=== PATIENT | female | born 1960 | race American Indian/Alaskan Native ===

== ENCOUNTER 2021-03-13 02:40 | Emergency (ER) | payer MEDICAID ==
[2021-03-13] MEDS ORDERED: ONDANSETRON 4 MG ODT TAB PO ONE (05:12)
[2021-03-13] MEDS ORDERED: ALPRAZolam 0.5 MG TAB PO ONE (05:12)
[2021-03-13] MEDS ORDERED: ACETAMINOPHEN 325 MG TAB PO ONE (05:12)
--- NOTE | 2021-03-13 05:14 | Event Note ---
Date: 03/13/21 The patient was evaluated in the emergency department for symptoms described in the history of present illness. He/she was evaluated in the context of the global COVID-19 pandemic, which necessitated consideration that the patient might be at risk for infection with the virus that causes COVID-19. Institutional protocols and algorithms that pertain to the evaluation of patients at risk for COVID-19 are in a state of rapid change based on information released by regulatory bodies including the CDC and federal and state organizations. These policies and algorithms were followed during the patient's care in the emergency department. Please note that these policies, procedures and recommendations changed on a rapid basis. EMS documentation not available at time of chart dictation Medical screening note: 60-year-old female, with a reported history of breast cancer and left-sided mastectomy, presenting to the ER with complaints of abdominal cramping, nausea and vomiting. She reports that she believes she consumed some bad black shepard burgers, and her symptoms started. She also reports that she is feeling very anxious, and subsequently has left-sided abdominal cramping. She has chest tightness associated with nausea/vomiting. She denies urinary symptoms. On examination, patient is awake, anxious, but redirectable. She does have mild abdominal tenderness which she attributes secondary to nausea and vomiting. Reports she can only have IVs placed in her right upper extremity, secondary to history of left-sided mastectomy. She denies the possibility of carbon monoxide exposure. Obtain appropriate laboratory studies, EKG, treat symptoms with oral medications. Detailed history and physical to be performed by oncoming ER provider who will determine the patient's ultimate disposition. Vital Signs 03/13/21 04:47 Temperature 98.7 F Pulse Rate 82 Respiratory 16 Rate Blood Pressure 122/71 [Left] O2 Sat by Pulse 98 Oximetry
[2021-03-13] MEDS ORDERED: ONDANSETRON 4 MG/2 ML INJ IV ONE (05:50)
[2021-03-13] MEDS ORDERED: MORPHINE 4 MG/1 ML INJ IV ONE (05:51)
[2021-03-13 06:02] LABS: Bilirubin,Urine NEG (Negative); Blood,Urine NEG (Negative); Color,Urine Yellow (Yellow); Mucus,Urine FEW /HPF; Urobilinogen,Urine < 2.0 mg/dL (<2.0)
[2021-03-13 06:17] LABS: Basophils % (Auto) 0.3 % (0.0-1.8); Hematocrit 40.6 % (30.3-42.9); Hemoglobin 13.3 gm/dl (10.1-14.3); Lymphocytes # (Auto) 0.8 K/mm3 (1.2-5.4); Mean Corpuscular HGB Conc 33 % (30-34); Mean Corpuscular Volume 90 fl (79-97); Monocytes # (Auto) 0.3 K/mm3 (0.0-0.8); Monocytes % (Auto) 3.7 % (0.0-7.3); Platelet Count 307 K/mm3 (140-440); Red Blood Count 4.49 M/mm3 (3.65-5.03); Red Cell Distribution Width 14.1 % (13.2-15.2)
[2021-03-13 06:23] LABS: Alanine Aminotransferase 18 units/L (7-56); Albumin 4.9 g/dL (3.9-5); Blood Urea Nitrogen 10 mg/dL (7-17); Calcium 9.8 mg/dL (8.4-10.2); Hemolysis Index 137
[2021-03-13 06:35] LABS: Protein,Urine <15 mg/dL mg/dL (Negative)
--- NOTE | 2021-03-13 06:45 | Emergency Department Report ---
ED N/V/D HPI - General Chief complaint: Nausea/Vomiting/Diarrhea Stated complaint: ABDOMINAL PAIN/NAUSEA/VOMITING Time Seen by Provider: 03/13/21 05:59 Source: patient Mode of arrival: Ambulatory Limitations: No Limitations - History of Present Illness Initial comments: Patient presents with a 1 day history of nausea, vomiting, and abdominal pain. She and her daughter both ate some black shepard burgers. Patient thinks that this may have upset her stomach. She also states that this could have just "triggered her symptoms." She has a long history of gastric issues. She does not know what is being treated. She states that she had been told that she has polyps which were removed. She was told that she had an ulcer which was treated. She regardless still has a chronic and ongoing abdominal issues. Today, she is concerned because of the black shepard burgers and the fact that her daughter became ill with similar symptoms. Patient has no hematemesis or coffee-ground emesis. Has no melenic stool. The pain does not radiate or migrate. It is localized to the left upper quadrant. Patient was seen by another provider initially and labs were ordered. - Related Data Previous Rx's Medication Instructions Recorded Last Taken Type Hyoscyamine Subl [Levsin Sl 0.125 0.125 mg SL Q6HR PRN #20 tab 03/13/21 Unknown Rx TAB] Ondansetron [Zofran ODT TAB] 8 mg PO Q8HR PRN #20 tab.rapdis 03/13/21 Unknown Rx Allergies Allergy/AdvReac Type Severity Reaction Status Date / Time latex Allergy Hives Verified 03/13/21 04:47 metoclopramide [From Reglan] Allergy Vomiting Verified 03/13/21 04:47 Penicillins Allergy Hives Verified 03/13/21 04:47 ED Review of Systems ROS: Stated complaint: ABDOMINAL PAIN/NAUSEA/VOMITING Other details as noted in HPI Comment: All other systems reviewed and negative Constitutional: denies: fever Eyes: denies: eye pain ENT: denies: throat pain Respiratory: denies: cough Cardiovascular: denies: chest pain Endocrine: denies: unexplained weight loss Gastrointestinal: as per HPI Genitourinary: denies: dysuria Musculoskeletal: denies: back pain Skin: denies: rash Neurological: denies: headache Hematological/Lymphatic: denies: easy bruising ED Past Medical Hx - Past Medical History Previous Medical History?: Yes Hx Hypertension: Yes Hx Congestive Heart Failure: Yes Hx of Cancer: Yes (breast) Hx Psychiatric Treatment: Yes (anxiety,depression) - Surgical History Hx Breast Surgery: Yes - Family History Family history: other (Anxiety) - Medications Home Medications: Home Medications Medication Instructions Recorded Confirmed Last Taken Type Hyoscyamine Subl [Levsin Sl 0.125 0.125 mg SL Q6HR PRN #20 tab 03/13/21 Unknown Rx TAB] Ondansetron [Zofran ODT TAB] 8 mg PO Q8HR PRN #20 tab.rapdis 03/13/21 Unknown Rx ED Physical Exam - General Limitations: No Limitations, Other (Pulse ox noted and normal) General appearance: alert, in no apparent distress - Head Head exam: Present: atraumatic, normocephalic - Eye Eye exam: Present: normal appearance, EOMI. Absent: scleral icterus - ENT ENT exam: Present: normal orophraynx, normal external ear exam - Neck Neck exam: Present: normal inspection. Absent: meningismus - Respiratory Respiratory exam: Present: normal lung sounds bilaterally. Absent: respiratory distress - Cardiovascular Cardiovascular Exam: Present: regular rate, normal rhythm - GI/Abdominal GI/Abdominal exam: Present: soft, tenderness (Mild left upper quadrant). Absent: distended, guarding, rebound - Extremities Exam Extremities exam: Present: normal capillary refill - Back Exam Back exam: Absent: CVA tenderness (R), CVA tenderness (L) - Neurological Exam Neurological exam: Present: alert, oriented X3, CN II-XII intact. Absent: motor sensory deficit - Psychiatric Psychiatric exam: Present: normal affect, normal mood - Skin Skin exam: Present: warm, dry ED Course Vital Signs 03/13/21 03/13/21 04:47 07:01 Temperature 98.7 F Pulse Rate 82 85 Respiratory 16 17 Rate Blood Pressure 122/71 119/71 [Left] O2 Sat by Pulse 98 97 Oximetry - Reevaluation(s) Reevaluation #2: 03/13/21 06:43 Labs are pending. Old records reviewed. Reevaluation #3: 03/13/21 07:07 Labs are noted. Patient was discharged. ED Medical Decision Making - Lab Data Result diagrams: 03/13/21 05:38 03/13/21 05:38 - Medical Decision Making Patient present with abdominal pain after eating black shepard burgers. She had GI upset as well. There is no evidence of acute hepatitis or pancreatitis. She has no distention or tympany to suggest bowel obstruction. There is no lower abdominal tenderness suggestive of appendicitis. She certainly does not have focal right upper quadrant tenderness to suggest biliary disease. At 60, I do not believe this would represent . She was treated symptomatically and referred for outpatient evaluation and follow-up. Critical Care Time: No Critical care attestation.: If time is entered above; I have spent that time in minutes in the direct care of this critically ill patient, excluding procedure time. ED Disposition Clinical Impression: Acute epigastric pain Nausea & vomiting Qualifiers: Vomiting type: unspecified Qualified Code(s): R11.2 - Nausea with vomiting, unspecified Disposition: 01 HOME / SELF CARE / HOMELESS Is pt being admited?: No Condition: Stable Instructions: Abdominal Pain, Adult, [id number], Nausea and Vomiting, Adult Additional Instructions: Have a bland diet. Drink plenty water. Return for problems. Continue home medication. Follow-up with your regular doctor and your GI doctor for recheck. Prescriptions: Hyoscyamine Subl [Levsin Sl 0.125 TAB] 0.125 mg SL Q6HR PRN #20 tab PRN Reason: abd pain Ondansetron [Zofran ODT TAB] 8 mg PO Q8HR PRN #20 tab.rapdis PRN Reason: Nausea Referrals: PRIMARY CARE, [Primary Care Provider] - 3-5 Days
[2021-03-13 06:48] LABS: BUN/Creatinine Ratio 20
[2021-03-13 07:03] VITALS: BP 119/71
[2021-03-13] MEDS ORDERED: HALOPERIDOL LACTATE 5 MG/1 ML INJ IM ONE (07:46)
== END 2021-03-13 07:56 | disposition home or self-care (01) ==
LOC: ED 02:40
DX: R10.13 Epigastric pain (principal); R11.2 Nausea with vomiting, unspecified; I10 Essential (primary) hypertension; Z86.79 Personal history of other diseases of the circulatory system; Z91.040 Latex allergy status; Z88.0 Allergy status to penicillin; Z88.8 Allergy status to other drugs, medicaments and biological substances
CPT/HCPCS: 36415; 80053; 81001; 83690; 84484; 85025; 96374; 96375; 99283; J2270; J2405; J3490; Q0162

== ENCOUNTER 2021-06-01 01:16 | Emergency (ER) | payer MEDICAID ==
[2021-06-01] MEDS ORDERED: ONDANSETRON 4 MG/2 ML INJ IV ONE (01:31)
[2021-06-01] MEDS ORDERED: SODIUM CHLORIDE 0.9% 1000 ML 1,000 ML IV ONE (01:31)
[2021-06-01] MEDS ORDERED: FAMOTIDINE 20 MG/2 ML INJ IV ONE (01:31)
--- NOTE | 2021-06-01 01:37 | Emergency Department Report ---
ED N/V/D HPI - General Chief complaint: Abdominal Pain Stated complaint: AB PAIN/VOMITTNG Source: patient Mode of arrival: Ambulatory Limitations: No Limitations - History of Present Illness Initial comments: Patient is a 61-year-old -[place] female with a history of CHF, hypertension and anxiety and depression who presents to the ED with complaint of acute onset persistent intractable nausea and vomiting and diarrhea with epigastric pain for the last 4 hours. Patient states that the symptoms have been persistent and that she is unable to keep anything down. Patient states that the symptoms started after she and her daughter ate food at [employer] about 8 hours ago. Patient states that her daughter also has similar symptoms. Patient denies dizziness, syncope, chest pain, shortness of breath, palpitations, cough, fever, chills, dysuria, urinary frequency and urgency, hematemesis or headache. MD complaint: nausea, vomiting, diarrhea, abdominal pain (epigastric pain) -: Sudden, hour(s) (4) Description of Vomiting: food contents, watery, bilious Description of Diarrhea: water Associated Abdominal Pain: Yes (mild epigastric pain) Location: epigastric Radiation: none Severity: moderate Pain Scale: 5 Quality: cramping, dull Consistency: intermittent Improves with: none Worsens with: eating, vomiting Context: possible food poisoning, sick contacts Associated Symptoms: denies other symptoms, malaise, nausea/vomiting. denies: myalgias, chest pain, cough, diaphoresis, fever/chills, headaches, loss of appetite, rash, dysuria, shortness of breath, syncope, weakness - Related Data Previous Rx's Medication Instructions Recorded Last Taken Type Hyoscyamine Subl [Levsin Sl 0.125 0.125 mg SL Q6HR PRN #20 tab 03/13/21 Unknown Rx TAB] Ondansetron [Zofran ODT TAB] 8 mg PO Q8HR PRN #20 tab.rapdis 03/13/21 Unknown Rx Allergies Allergy/AdvReac Type Severity Reaction Status Date / Time latex Allergy Hives Verified 03/13/21 04:47 metoclopramide [From Reglan] Allergy Vomiting Verified 03/13/21 04:47 Penicillins Allergy Hives Verified 03/13/21 04:47 ED Review of Systems ROS: Stated complaint: AB PAIN/VOMITTNG Other details as noted in HPI Constitutional: denies: chills, fever Eyes: denies: eye pain, eye discharge, vision change ENT: denies: ear pain, throat pain Respiratory: denies: cough, shortness of breath, wheezing Cardiovascular: denies: chest pain, palpitations Endocrine: no symptoms reported Gastrointestinal: abdominal pain (epigastric), nausea, vomiting, diarrhea Genitourinary: denies: urgency, dysuria, discharge Musculoskeletal: denies: back pain, joint swelling, arthralgia Skin: denies: rash, lesions Neurological: denies: headache, weakness, paresthesias Psychiatric: denies: anxiety, depression Hematological/Lymphatic: denies: easy bleeding, easy bruising ED Past Medical Hx - Past Medical History Hx Hypertension: Yes Hx Congestive Heart Failure: Yes Hx Psychiatric Treatment: Yes (anxiety,depression) - Surgical History Hx Breast Surgery: Yes - Medications Home Medications: Home Medications Medication Instructions Recorded Confirmed Last Taken Type Hyoscyamine Subl [Levsin Sl 0.125 0.125 mg SL Q6HR PRN #20 tab 03/13/21 Unknown Rx TAB] Ondansetron [Zofran ODT TAB] 8 mg PO Q8HR PRN #20 tab.rapdis 03/13/21 Unknown Rx ED Physical Exam - General Limitations: No Limitations General appearance: alert, in no apparent distress - Head Head exam: Present: atraumatic, normocephalic, normal inspection - Eye Eye exam: Present: normal appearance, PERRL, EOMI Pupils: Present: normal accommodation - ENT ENT exam: Present: normal exam, normal orophraynx, mucous membranes moist, TM's normal bilaterally, normal external ear exam - Neck Neck exam: Present: normal inspection, full ROM. Absent: tenderness - Respiratory Respiratory exam: Present: normal lung sounds bilaterally. Absent: respiratory distress, wheezes, rales, rhonchi, chest wall tenderness, accessory muscle use, decreased breath sounds, other - Cardiovascular Cardiovascular Exam: Present: regular rate, normal rhythm, normal heart sounds. Absent: systolic murmur, diastolic murmur, rubs, gallop - GI/Abdominal GI/Abdominal exam: Present: soft, tenderness (Palpable mild epigastric tenderness), normal bowel sounds. Absent: guarding, rebound, hyperactive bowel sounds - Extremities Exam Extremities exam: Present: normal inspection, full ROM, normal capillary refill - Back Exam Back exam: Present: normal inspection, full ROM. Absent: tenderness, CVA tenderness (R), CVA tenderness (L), muscle spasm, paraspinal tenderness, vertebral tenderness - Neurological Exam Neurological exam: Present: alert, oriented X3, CN II-XII intact, normal gait, reflexes normal - Psychiatric Psychiatric exam: Present: normal affect, normal mood, anxious - Skin Skin exam: Present: warm, dry, intact, normal color. Absent: rash ED Medical Decision Making - Medical Decision Making This is a 61-year-old -[place] female with a history of CHF, hypertension and anxiety and depression who presents to the ED with complaint of acute onset persistent intractable nausea and vomiting and diarrhea with epigastric pain for the last 4 hours. Patient states that the symptoms have been persistent and that she is unable to keep anything down. Patient states that the symptoms started after she and her daughter ate food at [employer] about 8 hours ago. Patient states that her daughter also has similar symptoms. In the ED, patient is alert and oriented x3 and is not in any distress. Patient was treated in the ED for nausea and vomiting, also given antacids and normal saline 1 L IV bolus x1. Patient care was transferred to the ED attending physician Dr. Manzo who took over care of the patient as the patient was moved from the front triage section to the main ED for ease of evaluation and management. Critical care attestation.: If time is entered above; I have spent that time in minutes in the direct care of this critically ill patient, excluding procedure time. ED Disposition Clinical Impression: Nausea, vomiting and diarrhea, Abdominal pain, acute, epigastric, Viral gastroenteritis GERD (gastroesophageal reflux disease) Qualifiers: Esophagitis presence: esophagitis presence not specified Qualified Code(s): K21.9 - Gastro-esophageal reflux disease without esophagitis Disposition: HOME / SELF CARE / HOMELESS Is pt being admited?: No Does the pt Need Aspirin: No Condition: Stable Instructions: Viral Gastroenteritis, Adult, [id number], Nausea and Vomiting, Adult, [id number], Abdominal Pain, Adult, [id number], Gastroesophageal Reflux Disease, Adult, Pfff-[id number], Diarrhea, Adult, [id number], Abdominal Pain (ED)
[2021-06-01] MEDS ORDERED: SUCRALFATE 1 GM/10 ML ORAL LIQD PO ONE (01:43)
[2021-06-01] MEDS ORDERED: ONDANSETRON 4 MG ODT TAB PO ONE (01:43)
[2021-06-01] MEDS ORDERED: hydrOXYzine PAMOATE 25 MG CAP PO ONE (01:43)
--- NOTE | 2021-06-01 01:44 | Emergency Department Report ---
ED General Adult HPI - General Chief complaint: Abdominal Pain Stated complaint: AB PAIN/VOMITTNG Source: patient, RN notes reviewed, old records reviewed Mode of arrival: Ambulatory Limitations: No Limitations - History of Present Illness Initial comments: The patient is a 61-year-old female whom I have evaluated in the past, who presents to the ER today with a primary complaint of anxiety and heartburn. Her family member is also here as a patient, and this Ms. Mascorro reports that when her family member becomes ill or sick, she becomes anxious, and experiences cramping, and nausea. Prior to her family member becoming ill, Ms. Mascorro reports that she is not having any symptoms. She reports no fever, chest pain, shortness of breath, travel, surgery, immobilization, DVT/PE risk factors. She felt much improved in the emergency room with appropriate supportive care. She denies irritative and obstructive urinary symptoms. Her symptoms started approximately 5 to 6 hours ago -: Gradual Location: abdomen Severity scale (0 -10): 5 Quality: aching Consistency: now resolved Improves with: medication Worsens with: other (Worsens when family members become ill) - Related Data Previous Rx's Medication Instructions Recorded Last Taken Type Hyoscyamine Subl [Levsin Sl 0.125 0.125 mg SL Q6HR PRN #20 tab 03/13/21 Unknown Rx TAB] Ondansetron [Zofran ODT TAB] 8 mg PO Q8HR PRN #20 tab.rapdis 03/13/21 Unknown Rx [employer] [Genesis] 250 mg PO QID PRN #30 capsule 06/01/21 Unknown Rx Ondansetron [Zofran Odt] 4 mg PO Q8HR PRN #20 tab.rapdis 06/01/21 Unknown Rx Allergies Allergy/AdvReac Type Severity Reaction Status Date / Time latex Allergy Hives Verified 03/13/21 04:47 metoclopramide [From Reglan] Allergy Vomiting Verified 03/13/21 04:47 Penicillins Allergy Hives Verified 03/13/21 04:47 ED Review of Systems ROS: Stated complaint: AB PAIN/VOMITTNG Other details as noted in HPI Constitutional: denies: chills, fever Eyes: denies: eye discharge ENT: denies: epistaxis Respiratory: denies: cough, shortness of breath Cardiovascular: denies: chest pain, palpitations Endocrine: no symptoms reported Gastrointestinal: as per HPI, nausea Genitourinary: denies: dysuria Psychiatric: anxiety Hematological/Lymphatic: denies: easy bleeding ED Past Medical Hx - Past Medical History Hx Hypertension: Yes Hx Congestive Heart Failure: Yes Hx Psychiatric Treatment: Yes (anxiety,depression) - Surgical History Hx Breast Surgery: Yes - Medications Home Medications: Home Medications Medication Instructions Recorded Confirmed Last Taken Type Hyoscyamine Subl [Levsin Sl 0.125 0.125 mg SL Q6HR PRN #20 tab 03/13/21 Unknown Rx TAB] Ondansetron [Zofran ODT TAB] 8 mg PO Q8HR PRN #20 tab.rapdis 03/13/21 Unknown Rx [employer] [Genesis] 250 mg PO QID PRN #30 capsule 06/01/21 Unknown Rx Ondansetron [Zofran Odt] 4 mg PO Q8HR PRN #20 tab.rapdis 06/01/21 Unknown Rx ED Physical Exam - General Limitations: No Limitations General appearance: alert, in no apparent distress - Head Head exam: Present: atraumatic, normocephalic - Eye Eye exam: Present: normal appearance, EOMI. Absent: nystagmus - ENT ENT exam: Present: normal exam, normal orophraynx, mucous membranes moist, normal external ear exam - Neck Neck exam: Present: normal inspection, full ROM. Absent: tenderness, meningismus - Respiratory Respiratory exam: Present: normal lung sounds bilaterally. Absent: respiratory distress, wheezes, rales, rhonchi, stridor, decreased breath sounds - Cardiovascular Cardiovascular Exam: Present: regular rate, normal rhythm, normal heart sounds. Absent: bradycardia, tachycardia, irregular rhythm, systolic murmur, diastolic murmur, rubs, gallop - GI/Abdominal GI/Abdominal exam: Present: soft, normal bowel sounds. Absent: distended, tenderness, guarding, rebound, rigid, pulsatile mass - Extremities Exam Extremities exam: Present: normal inspection, full ROM, other (2+ pulses noted in the bilateral upper and lower extremities. There is no palpable cord. negative Homans sign. Muscular compartments are soft. The pelvis is stable.). Absent: pedal edema, calf tenderness - Back Exam Back exam: Present: normal inspection, full ROM. Absent: tenderness, CVA tenderness (R), CVA tenderness (L), paraspinal tenderness, vertebral tenderness - Neurological Exam Neurological exam: Present: alert, oriented X3, normal gait, other (No facial droop. Tongue midline. Extraocular movements intact bilaterally. Facial sensation intact to light touch in V1, V2, V3 distribution bilaterally. 5 and a 5 strength in 4 extremities. Sensation intact to light touch in 4 extremities.). Absent: motor sensory deficit - Psychiatric Psychiatric exam: Present: normal affect, normal mood - Skin Skin exam: Present: warm, dry, intact, normal color. Absent: rash ED Course Vital Signs 06/01/21 06/01/21 02:06 02:13 Temperature 98.1 F Pulse Rate 79 Respiratory 19 16 Rate Blood Pressure 111/64 [Right] O2 Sat by Pulse 100 100 Oximetry ED Medical Decision Making - Lab Data Result diagrams: 06/01/21 01:28 06/01/21 01:28 Vital Signs 06/01/21 06/01/21 02:06 02:13 Temperature 98.1 F Pulse Rate 79 Respiratory 19 16 Rate Blood Pressure 111/64 [Right] O2 Sat by Pulse 100 100 Oximetry Lab Results 06/01/21 06/01/21 Range/Units 01:28 01:28 WBC 6.9 (4.5-11.0) K/mm3 RBC 4.23 (3.65-5.03) M/mm3 Hgb 12.7 (10.1-14.3) gm/dl Hct 38.5 (30.3-42.9) % MCV 91 (79-97) fl MCH 30 (28-32) pg MCHC 33 (30-34) % RDW 13.6 (13.2-15.2) % Plt Count 288 (140-440) K/mm3 Lymph % (Auto) 18.2 (13.4-35.0) % Lee % (Auto) 6.6 (0.0-7.3) % Eos % (Auto) 0.7 (0.0-4.3) % Baso % (Auto) 0.5 (0.0-1.8) % Lymph # (Auto) 1.3 (1.2-5.4) K/mm3 Lee # (Auto) 0.5 (0.0-0.8) K/mm3 Eos # (Auto) 0.0 (0.0-0.4) K/mm3 Baso # (Auto) 0.0 (0.0-0.1) K/mm3 Seg Neutrophils % 74.0 H (40.0-70.0) % Seg Neutrophils # 5.1 (1.8-7.7) K/mm3 Sodium 138 (137-145) mmol/L Potassium 3.5 L (3.6-5.0) mmol/L Chloride 98.8 (98-107) mmol/L Carbon Dioxide 25 (22-30) mmol/L Anion Gap 18 mmol/L BUN 12 (7-17) mg/dL Creatinine 0.8 (0.6-1.2) mg/dL Estimated GFR > 60 ml/min BUN/Creatinine Ratio 15 % Glucose 99 (65-100) mg/dL Calcium 9.0 (8.4-10.2) mg/dL Total Bilirubin 0.50 (0.1-1.2) mg/dL AST 13 (5-40) units/L ALT 13 (7-56) units/L Alkaline Phosphatase 76 (35-129) units/L Total Protein 7.3 (6.3-8.2) g/dL Albumin 4.2 (3.9-5) g/dL Albumin/Globulin Ratio 1.4 % - EKG Data -: EKG Interpreted by Ut EKG shows normal: sinus rhythm Rate: normal - EKG Data When compared to previous EKG there are: previous EKG unavailable 06/01/21 02:38 The EKG is interpreted at 01: 47 Sinus rhythm, 75 bpm. Normal axis, normal P wave axis, left ventricular hypertrophy, motion artifact, QTC 4 9 0 ms. This is an abnormal EKG. This is not a STEMI. - Medical Decision Making Differential diagnosis, including but not limited to: GERD, gastritis, hiatal hernia, anxiety, conversion disorder, electrolyte derangement Assessment and plan: 61-year-old who is not currently tachycardic, tachypneic or hypoxic, who denies DVT and pulmonary embolism risk factors, who is low risk by Wells criteria for pulmonary embolism, low risk for major adverse cardiac event as per heart score, who presents today with a primary complaint of anxiety and heartburn, after her family member, who I am also treating as the patient (working diagnosis for family members cannabinoid hyperemesis syndrome) who has an unremarkable EKG, physical exam, and unremarkable laboratory studies. Reassurance provided. May follow-up with outpatient primary care. Return precautions reviewed. No irritative or obstructive urinary symptoms. Final reassessment, patient resting comfortably, in stretcher, in no acute distress, with no active nausea or vomiting. Critical care attestation.: If time is entered above; I have spent that time in minutes in the direct care of this critically ill patient, excluding procedure time. ED Disposition Clinical Impression: Epigastric abdominal pain, History of nausea Disposition: HOME / SELF CARE / HOMELESS Is pt being admited?: No Does the pt Need Aspirin: No Condition: Good Instructions: Abdominal Pain (ED) Additional Instructions: Avoid consumption of alcohol, tobacco, smoke products, Motrin, ibuprofen, Naprosyn, Aleve, and avoid exposure and consumption of marijuana products. Patient may continue current outpatient medications, and please take the prescribed nausea medications as needed and directed. Patient may take [id number] Pepcid, Protonix, or Tylenol as needed for physical pain. Recommend follow-up with your primary care doctor or training instructor within the next 4 to 6 weeks. Please return to the emergency room right away with new pain, worsened pain, migration of pain, projectile vomiting, change in mental status, confusion, inability tolerate liquid feeds, new, worsened or different symptoms not present on the initial emergency room evaluation Referrals: [facility] [Provider Group] - 3-5 Days [facility] [Provider Group] - 3-5 Days Forms: Work/School Release Form(ED)
[2021-06-01 01:46] LABS: Basophils % (Auto) 0.5 % (0.0-1.8); Eosinophils % (Auto) 0.7 % (0.0-4.3); Hematocrit 38.5 % (30.3-42.9); Hemoglobin 12.7 gm/dl (10.1-14.3); Lymphocytes # (Auto) 1.3 K/mm3 (1.2-5.4); Lymphocytes % (Auto) 18.2 % (13.4-35.0); Mean Corpuscular HGB Conc 33 % (30-34); Mean Corpuscular Volume 91 fl (79-97); Monocytes # (Auto) 0.5 K/mm3 (0.0-0.8); Monocytes % (Auto) 6.6 % (0.0-7.3); Platelet Count 288 K/mm3 (140-440); Red Blood Count 4.23 M/mm3 (3.65-5.03); Red Cell Distribution Width 13.6 % (13.2-15.2)
[2021-06-01 02:03] LABS: Alanine Aminotransferase 13 units/L (7-56); Albumin 4.2 g/dL (3.9-5); BUN/Creatinine Ratio 15; Blood Urea Nitrogen 12 mg/dL (7-17); Hemolysis Index 4
[2021-06-01 02:07] VITALS: BP 111/64
--- NOTE | 2021-06-01 15:20 | Electrocardiograph Report ---
[facility] Test Date: 2021-06-01 Test Time: 01:47:15 Pat Name: ZENAIDA PRESLEY Department: Room: Gender: F Marketing Support Assistant: RB : 1960 Requested By: JACQUELINE EDMONDSON Order Number: [id number] Reading MD: Benson Mast Measurements Intervals [place] Rate: 75 P: 83 [place]: 177 QRS: 86 QRSD: 89 T: 43 QT: 437 QTc: 490 Interpretive Statements Sinus rhythm NSTW'S No previous ECG available for comparison Electronically Signed On 06-01-2021 15:20:40 EDT by Benson Mast
== END 2021-06-01 03:21 | disposition home or self-care (01) ==
LOC: ED 01:16
DX: R10.13 Epigastric pain (principal); Z87.738 Personal history of other specified (corrected) congenital malformations of digestive system; Z91.040 Latex allergy status; Z88.0 Allergy status to penicillin; I10 Essential (primary) hypertension
CPT/HCPCS: 36415; 80053; 84484; 85025; 93005; 99283; J3490; Q0162

== ENCOUNTER 2021-09-10 16:50 | Emergency (ER) | payer MEDICAID ==
[2021-09-10 20:04] VITALS: BP 131/72
[2021-09-10 20:39] LABS: Basophils % (Auto) 0.8 % (0.0-1.8); Eosinophils % (Auto) 0.1 % (0.0-4.3); Hematocrit 39.5 % (30.3-42.9); Hemoglobin 13.2 gm/dl (10.1-14.3); Lymphocytes # (Auto) 1.2 K/mm3 (1.2-5.4); Lymphocytes % (Auto) 18.3 % (13.4-35.0); Mean Corpuscular HGB Conc 34 % (30-34); Mean Corpuscular Volume 92 fl (79-97); Monocytes # (Auto) 0.3 K/mm3 (0.0-0.8); Monocytes % (Auto) 4.2 % (0.0-7.3); Platelet Count 307 K/mm3 (140-440); Red Blood Count 4.31 M/mm3 (3.65-5.03); Red Cell Distribution Width 13.8 % (13.2-15.2)
[2021-09-10 20:54] LABS: Alanine Aminotransferase 16 units/L (7-56); Albumin 4.6 g/dL (3.9-5); Blood Urea Nitrogen 8 mg/dL (7-17); Calcium 9.9 mg/dL (8.4-10.2); Hemolysis Index 7
[2021-09-10 20:59] LABS: BUN/Creatinine Ratio 11
[2021-09-11 03:28] LABS: Bilirubin,Urine NEG (Negative); Blood,Urine NEG (Negative); Color,Urine Straw (Yellow); Protein,Urine <15 mg/dL mg/dL (Negative); Urobilinogen,Urine < 2.0 mg/dL (<2.0)
[2021-09-11 03:29] LABS: Mucus,Urine FEW /HPF
== END 2021-09-11 01:35 | disposition left against medical advice (07) ==
LOC: ED 16:50
DX: R10.9 Unspecified abdominal pain (principal); Z53.21 Procedure and treatment not carried out due to patient leaving prior to being seen by health care provider
CPT/HCPCS: 36415; 80053; 81001; 85025